=== PATIENT | female | born 1980 | race Caucasian/White ===

== ENCOUNTER 2024-09-26 21:00 | Emergency (ER) | payer OTHER ==
[~2024-09-26] VITALS: Ht 152.4 cm; Wt 131.5 kg
[2024-09-26 21:02] VITALS: BP 165/104; PULSE 97; RESP 18; TEMP 37.16964; O2SAT 98
[2024-09-26] MEDS ORDERED: ROCEPHIN ONE (21:53)
[2024-09-26] MEDS ORDERED: ZOFRAN ONE (21:53)
[2024-09-26] MEDS ORDERED: TORADOL ONE (21:53)
[2024-09-26] MEDS ORDERED: MORPHINE SULFATE ONE (21:54)
[2024-09-26] MEDS ORDERED: NS 100ML 100 ML IV ONE (21:54)
[2024-09-26] MEDS ORDERED: NS 1000ML 1,000 ML ONE (21:54)
[2024-09-26] MEDS: ZOFRAN IV STA (22:04)
[2024-09-26] MEDS: MORPHINE SULFATE IV STA (22:04)
[2024-09-26] MEDS: ROCEPHIN 1,000 MG in NS 100ML 100 ML IV STA (22:05)
[2024-09-26] MEDS: NS 1000ML 1,000 ML IV STA (22:05)
[2024-09-26] MEDS: TORADOL IV STA (22:05)
[2024-09-26 22:20] LABS: BASOPHIL # 0.1 10^3/uL (0.0-0.1); BASOPHIL % 1.1 % (0.1-1.2); EOSINOPHIL # 0.3 10^3/uL (0.0-0.2); EOSINOPHIL % 4.8 % (0.0-5.0); HEMATOCRIT(ML) 34.2 % (36.0-46.0); HEMOGLOBIN 10.7 g/dL (12.0-15.0); LYMPHOCYTES # 1.92 10^3/uL1 (1.0-4.8); LYMPHOCYTES % 27.4 % (24.0-44.0); MEAN CORP HGB 24.9 pg (26-34); MEAN CORP HGB CONCENTRATION 31.3 g/dL (33-36.5); MEAN CORP VOLUME 79.5 fL (78-100); MONOCYTES # 0.6 10^3/uL (0.3-0.8); MONOCYTES % 8.3 % (5.0-12.0); NEUTROPHIL # 4.1 10^3/uL (1.8-7.7); NEUTROPHILS % 58.3 % (41.0-85.0); PLATELET COUNT 258 10^3/uL (150-400); RED CELL DISTRIBUTION WIDTH 16.6 % (11.5-14.5)
[2024-09-26 22:21] LABS: +ADD MANUAL DIFF(NO CHRG) NO
[2024-09-26 22:34] LABS: ALBUMIN(ML) 3.4 g/dL (3.4-5.0); ALBUMIN/GLOBULIN RATIO 0.809; BUN/CREATININE RATIO 18.18 (10.0-20.0); C-REACTIVE PROTEIN 1.38 mg/dL (0.00-5.00); CALCIUM 8.4 mg/dL (8.4-10.5); CARBON DIOXIDE 23.6 mmol/L (20.0-32); CREATININE SERUM 0.77 mg/dL (0.59-1.40); EST GFR, NON-AA 81.8 (>/=60); POTASSIUM 3.6 mmol/L (3.6-5.2)
[2024-09-26] MEDS ORDERED: ONDA-226 PO (23:16)
[2024-09-26] MEDS ORDERED: CEPH500C PO (23:16)
[2024-09-26 23:22] VITALS: BP 164/88; PULSE 77; RESP 18; O2SAT 99
[2024-09-26] MEDS ORDERED: GABA100C7 PO (23:28)
== END 2024-09-26 23:25 | disposition home or self-care (01) ==
LOC: ER 21:00
DX: L03.811 Cellulitis of head [any part, except face] (principal); G43.911 Migraine, unspecified, intractable, with status migrainosus; Z98.890 Other specified postprocedural states
CPT/HCPCS: 99284; 96365; 96375; 80053; 85025; 36415; 87040 ×2; 86140; 87070; J1885; J2270; J7030; J2405; J0696 ×2; 96372